=== PATIENT | male | born 1960 | race Two or more races ===

== ENCOUNTER 2017-11-03 09:01 | Emergency (ER) | payer MEDICAID, MEDICARE ==
[~2017-11-03] VITALS: Ht 175.3 cm; Wt 77.1 kg
[2017-11-03 09:30] VITALS: BP 124/72
--- NOTE | 2017-11-03 09:46 | Emergency Room Report ---
History of Present Illness General Chief Complaint: Laceration Source: Patient, Caregiver Present Illness HPI 57-year-old male presents with laceration to left occipital scalp after accidental fall after showering this morning. Caregiver denies any loss of consciousness, vomiting, altered mental status. However patient with developmental delay, not providing HPI at this time Review of EMR from facility does not show any ASA, AC Allergies: Coded Allergies: CHLORPROMAZINE (Verified Allergy, Unknown, 11/03/17) MEPERIDINE (Verified Allergy, Unknown, 11/03/17) PHENOBARBITAL (Verified Allergy, Unknown, 11/03/17) PROMETHAZINE (Verified Allergy, Unknown, 11/03/17) Patient History Past Medical History: see triage record Past Surgical History: none Pertinent Family History: none Social History: Denies: smoking, alcohol use, drug use Immunizations: UTD Reviewed Nursing Documentation: PMH: Agreed; PSxH: Agreed Nursing Documentation-PMH Past Medical History: No History, Except For Hx Hypertension: Yes Review of Systems All Other Systems: limited - patient nonverbal Physical Exam Vital Signs Date Time Temp Pulse Resp B/P (MAP) Pulse Ox O2 Delivery O2 Flow Rate FiO2 11/03/17 09:16 69 16 124/72 96 Room Air Sp02 EP Interpretation: reviewed, normal General Appearance: normal inspection, well appearing, no apparent distress, alert, GCS 15, non-toxic Head: normocephalic, other - left occiput: 5cm linear laceration. No active bleeding. No FB or debris. Eyes: bilateral eye PERRL, bilateral eye EOMI ENT: normal ENT inspection, hearing grossly normal, normal pharynx, no angioedema, normal voice, TMs + canals normal, uvula midline, moist mucus membranes Neck: normal inspection, full range of motion, supple, thyroid normal, no meningismus, no bony tend Respiratory: normal inspection, lungs clear, normal breath sounds, no rhonchi, no respiratory distress, no retraction, no accessory muscle use, no wheezing, speaking full sentences Cardiovascular #1: regular rate, rhythm, no edema, no JVD, normal capillary refill Gastrointestinal: normal inspection, normal bowel sounds, non tender, soft, no mass, no peritonitis, non-distended, no guarding, no hernia, no pulsatile mass Genitourinary: no CVA tenderness Musculoskeletal: normal inspection, back normal, normal range of motion, no calf tenderness, pelvis stable, Lillie's Sign negative Neurologic: normal inspection, alert, oriented x3, responsive, 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 as tested, motor strength/tone normal, cerebellar normal, normal gait, speech normal Psychiatric: normal inspection, judgement/insight normal, mood/affect normal, no suicidal/homicidal ideation, no delusions Skin: normal inspection, normal color, no rash Lymphatic: normal inspection, no adenopathy Procedures Laceration/Wound Repair Laceration/Wound Repair : Consent: Emergent Wound Location: head Wound's Depth, Shape: superficial Wound Explored: clean Betadine Prep?: No Wound Debrided: minimal Wound Repaired With: becky Number of Sutures: 5 Layer Closure?: No Sterile Dressing Applied?: Yes Splint Applied?: No Sling Applied?: No Patient Tolerated: Well Complications: None Medical Decision Making Diagnostic Impression: Primary Impression: Laceration Additional Impression: Fall Qualified Codes: W19.XXXA - Unspecified fall, initial encounter ER Course VSS, afebrile Tetanus updated CT head: no ICH injury Lac repaired with becky Caregiver understands to return in 5 days for staple removal ER course: Patient has remained stable during ED stay. Disposition: Patient is to be discharged to home. Patient is instructed to follow up with Er in 5 days for staple removal Strict return precautions discussed with patient such as fever, chills, worsening/severe pain, nausea, vomiting, which may indicate severe illness. Patient verbalizes understanding and agrees with plan. Please note that this Emergency Department Report was dictated using [employer] operations specialist technology software, occasionally this can lead to erroneous entry secondary to interpretation by the dictation equipment Last Vital Signs Date Time Temp Pulse Resp B/P (MAP) Pulse Ox O2 Delivery O2 Flow Rate FiO2 11/03/17 09:30 69 16 124/72 96 Room Air Status: improved Disposition: HOME, SELF-CARE FREIDA DOYLE M.D. Nov 03, 2017 09:46
[2017-11-03] MEDS ORDERED: Tetanus/Diptheria/Pertussis Vaccine 0.5ml Syr IM ONE (10:00)
--- NOTE | 2017-11-03 10:35 | Diagnostic Imaging Report ---
Indications: Headache, pain, status post fall Technique: Spiral acquisitions obtained through the brain. Angled axial and coronal 5 x 5 mm slices were reconstructed. Total dose length product 436.56 mGycm. CTDI vol(s) 70.38 mGy. Dose reduction achieved using automated exposure control Comparison: None. Findings: There is a patent septum cavum pellucidum-normal anatomic variant. No acute intrarenal hemorrhage or edema, mass effect, nor midline shift. Normal size intervals and extra axial CSF spaces. Visualized orbits and sinuses are unremarkable. Hypoplastic mastoids bilaterally. Intact calvarium. Skin becky are seen in the occipital region. Impression: Evidence of left occipital scalp injury Negative for acute intracranial bleed or mass effect The CT scanner at [facility] is accredited by the [employer] and the scans are performed using protocols designed to limit radiation exposure to as low as reasonably achievable to attain images of sufficient resolution adequate for diagnostic evaluation.
[2017-11-03 10:45] VITALS: BP 122/70
== END 2017-11-03 10:45 | disposition home or self-care (01) ==
LOC: EMR 10:00
DX: S01.01XA Laceration without foreign body of scalp, initial encounter (principal); W19.XXXA Unspecified fall, initial encounter; Y93.E1 Activity, personal bathing and showering; Y92.002 Bathroom of unspecified non-institutional (private) residence as the place of occurrence of the external cause; Z23 Encounter for immunization; I10 Essential (primary) hypertension; Z88.8 Allergy status to other drugs, medicaments and biological substances
CPT/HCPCS: 70450; 90471; 90715; 99283